=== PATIENT | male | born 1950 | race Caucasian/White ===

== ENCOUNTER 2022-09-08 21:26 | Inpatient (IN) | payer MEDICARE, BC ==
[~2022-09-08] VITALS: Ht 175.3 cm; Wt 93.0 kg
[2022-09-08] MEDS ORDERED: SODIUM CHLORIDE 0.9% 500ML 500 ML IV STA (21:52)
[2022-09-08] MEDS ORDERED: ACETAMINOPHEN 325 MG TAB PO STA (21:52)
[2022-09-08] MEDS ORDERED: CEFTRIAXONE 1 GM VIAL IV ONE (22:00)
[2022-09-08] MEDS ORDERED: CEFTRIAXONE 1 GM VIAL ONE (22:18)
[2022-09-08] MEDS ORDERED: SODIUM CHLORIDE 0.9% 500ML 500 ML ONE (22:18)
[2022-09-08] MEDS ORDERED: ACETAMINOPHEN 325 MG TAB ONE (22:18)
[2022-09-08] MEDS ORDERED: ONDANSETRON HCL 4 MG ORAL DISINTEGRATING TAB PO PRN (22:30)
[2022-09-08] MEDS ORDERED: DIPHENHYDRAMINE HCL INJ 50 MG/ML VIAL IV PRN (22:30)
[2022-09-08] MEDS ORDERED: ZOLPIDEM TARTRATE 5 MG TAB PO PRN (22:30)
[2022-09-08] MEDS ORDERED: ACETAMINOPHEN 325 MG TAB PO PRN (22:30)
[2022-09-08] MEDS ORDERED: SODIUM CHLORIDE FLUSH 10 ML SYR INJ PRN (22:30)
[2022-09-09] VITALS (13 sets, daily range): BP systolic 102–144; BP diastolic 60–86; PULSE 102–118; RESP 16–22; TEMP 97.5–99.7; O2SAT 93–100
[2022-09-09] MEDS: LACTATED RINGER'S 1,000 ML IV SCH ×2 (00:58→13:35)
[2022-09-09] MEDS: IPRATROPIUM BROMIDE 0.02% 2.5 ML NEB NEB SCH ×4 (01:04→19:06)
[2022-09-09] MEDS: CEFTRIAXONE 1 GM VIAL IV SCH ×2 (09:30→20:14)
[2022-09-09] MEDS: FAMOTIDINE 20 MG/2 ML VIAL IV SCH ×2 (09:30→16:24)
[2022-09-09 12:11] LABS: BASOPHILS % 0.2 % (0.0-1.0); EOSINOPHILS % 0.1 % (0.0-6.0); HEMATOCRIT 39.5 % (38.2-49.6); HEMOGLOBIN 13.3 g/dL (14.0-18.0); LYMPHOCYTES # (AUTO) 1.2 (1.0-3.2); LYMPHOCYTES % 6.4 % (18.0-39.1); MEAN CORPUSCULAR HEMOGLOBIN 28.7 pg (28-32); MEAN CORPUSCULAR HGB CONC 33.7 g/dL (31-35); MEAN CORPUSCULAR VOLUME 85.1 fL (81-99); MONOCYTES # (AUTO) 0.9 (0.2-0.8); MONOCYTES % 5.2 % (4.4-11.3); NEUTROPHILS # (AUTO) 15.8 (2.1-6.9); NEUTROPHILS % 87.2 % (38.7-80.0); PLATELET COUNT 170 x10e3/uL (140-360); RED BLOOD COUNT 4.64 x10e6/uL (4.3-5.7); RED CELL DISTRIBUTION WIDTH 14.1 % (11.7-14.4)
[2022-09-09 12:31] LABS: ALBUMIN 3.3 g/dL (3.5-5.0); ALBUMIN/GLOBULIN RATIO 0.9 (0.8-2.0); ANION GAP 12.6 mmol/L (8-16); CALCIUM 9.1 mg/dL (8.4-10.2); CREATININE, SERUM 1.21 mg/dL (0.72-1.25); POTASSIUM 3.6 mmol/L (3.5-5.1)
[2022-09-09] MEDS ORDERED: BENZONATATE 100 MG CAP PO PRN (14:15)
[2022-09-09] MEDS: ENOXAPARIN SOD INJ 40 MG/0.4 ML SYR SC SCH (16:27)
[2022-09-10] VITALS (12 sets, daily range): BP systolic 113–145; BP diastolic 71–95; PULSE 97–115; RESP 16–20; TEMP 98–98.8; O2SAT 93–100
[2022-09-10] MEDS: IPRATROPIUM BROMIDE 0.02% 2.5 ML NEB NEB SCH ×4 (00:45→19:13)
[2022-09-10] MEDS: LACTATED RINGER'S 1,000 ML IV SCH ×3 (01:29→21:56)
[2022-09-10] MEDS: CEFTRIAXONE 1 GM VIAL IV SCH ×2 (09:26→20:26)
[2022-09-10] MEDS: FAMOTIDINE 20 MG/2 ML VIAL IV SCH ×2 (09:27→16:52)
[2022-09-10 16:42] LABS: BASOPHILS % 0.3 % (0.0-1.0); EOSINOPHILS # (AUTO) 0.1 (0.0-0.4); EOSINOPHILS % 0.9 % (0.0-6.0); HEMATOCRIT 38.9 % (38.2-49.6); HEMOGLOBIN 12.8 g/dL (14.0-18.0); LYMPHOCYTES # (AUTO) 1.8 (1.0-3.2); LYMPHOCYTES % 13.8 % (18.0-39.1); MEAN CORPUSCULAR HGB CONC 32.9 g/dL (31-35); MEAN CORPUSCULAR VOLUME 85.1 fL (81-99); MONOCYTES # (AUTO) 0.9 (0.2-0.8); MONOCYTES % 6.6 % (4.4-11.3); NEUTROPHILS % 77.9 % (38.7-80.0); PLATELET COUNT 197 x10e3/uL (140-360); RED BLOOD COUNT 4.57 x10e6/uL (4.3-5.7)
[2022-09-10] MEDS: ENOXAPARIN SOD INJ 40 MG/0.4 ML SYR SC SCH (16:53)
[2022-09-11] VITALS: BP 134/72; PULSE 62; RESP 18; TEMP 99.4; O2SAT 98
[2022-09-11 01:06] VITALS: PULSE 101; RESP 16; O2SAT 97
[2022-09-11] MEDS: IPRATROPIUM BROMIDE 0.02% 2.5 ML NEB NEB SCH ×3 (01:06→07:26)
[2022-09-11 04:00] VITALS: BP 134/72; PULSE 100; RESP 16; TEMP 99.4; O2SAT 100
[2022-09-11 07:26] VITALS: PULSE 97; RESP 18; O2SAT 96
[2022-09-11] MEDS: CEFTRIAXONE 1 GM VIAL IV SCH (08:37)
[2022-09-11] MEDS: FAMOTIDINE 20 MG/2 ML VIAL IV SCH (08:37)
[2022-09-11 09:14] VITALS: BP_SYST 153; BP_SYST 86; BP_DIAS 86; PULSE 94; RESP 16; TEMP 99.3; O2SAT 98
[2022-09-11 09:24] VITALS: BP 153/86; PULSE 94; RESP 16; TEMP 99.3; O2SAT 98
[2022-09-11] MEDS ORDERED: ACETAMINOPHEN325 M1 PO (09:43)
[2022-09-11] MEDS ORDERED: CEFUROXIME250 MG PO (09:43)
[2022-09-11] MEDS ORDERED: ONDANSETRON ODT4 MG PO (09:43)
[2022-09-11] MEDS ORDERED: Benzonatate PO (09:43)
[2022-09-11] MEDS ORDERED: AZITHROMYCIN250 MG PO (09:43)
== END 2022-09-11 10:34 | disposition home or self-care (01) | DRG 195 ==
LOC: FSED 21:29 → ERHOLD 21:58 → MED/SURG3 09-09 00:16
PROVIDERS: ADMIT Internal Medicine; ATTEND Internal Medicine
DX: J18.9 Pneumonia, unspecified organism (principal); E66.9 Obesity, unspecified; Z68.30 Body mass index [BMI] 30.0-30.9, adult; R06.03 Acute respiratory distress; R09.02 Hypoxemia
CPT/HCPCS: 36415; 71046; 80053; 81003; 82553; 83605; 83880; 84484; 85025; 87040; 87071; 87186; 87205; 87400; 93005; 94640; 94799; 99284; J0696; J1650; J7040; J7050

== ENCOUNTER 2023-05-22 10:29 | Inpatient (IN) | payer MEDICARE, BC ==
[~2023-05-22] VITALS: Ht 177.8 cm; Wt 110.2 kg
[~2023-05-22 10:29] MED LIST: ACETAMINOPHEN325 M1 PO; AZITHROMYCIN250 MG PO; Benzonatate PO; CEFUROXIME250 MG PO; ONDANSETRON ODT4 MG PO
[2023-05-22] MEDS ORDERED: CEFTRIAXONE 1 GM VIAL IV ONE (11:15)
[2023-05-22] MEDS ORDERED: POTASSIUM CHLORIDE 20 MEQ TAB CR PO ONE (11:39)
[2023-05-22] MEDS ORDERED: ACETAMINOPHEN 325 MG TAB ONE (11:39)
[2023-05-22] MEDS ORDERED: LACTATED RINGER'S 1,000 ML ONE (11:40)
[2023-05-22] MEDS ORDERED: CEFTRIAXONE 1 GM VIAL ONE (11:40)
[2023-05-22] MEDS: ACETAMINOPHEN 325 MG TAB PO ONE (11:43)
[2023-05-22] MEDS: POTASSIUM CHLORIDE 20 MEQ TAB CR PO ONE (11:43)
[2023-05-22] MEDS: LACTATED RINGER'S 1,000 ML IV ONE (11:44)
[2023-05-22] MEDS ORDERED: SODIUM CHLORIDE FLUSH 10 ML SYR INJ PRN (13:00)
[2023-05-22] MEDS ORDERED: IOPAMIDOL 370 MG/ML 100 ML INFUS..BTL INJ ONE (13:21)
[2023-05-22 15:10] VITALS: BP 126/73; PULSE 104; RESP 20; TEMP 98.2; O2SAT 99
[2023-05-22] MEDS ORDERED: ONDANSETRON HCL INJ 2MG/ML 2ML 2 MG/ML VIAL IV PRN (15:15)
[2023-05-22] MEDS ORDERED: ENALAPRILAT IV INJ 1.25 MG/ML VIAL IV PRN (15:15)
[2023-05-22] MEDS ORDERED: CLONIDINE HCL 0.1 MG TAB PO PRN (15:15)
[2023-05-22 15:50] VITALS: PULSE 110; RESP 21; O2SAT 97
[2023-05-22] MEDS: FAMOTIDINE 20 MG/2 ML VIAL IV SCH (16:27)
[2023-05-22] MEDS: ENOXAPARIN SOD INJ 40 MG/0.4 ML SYR SC SCH (16:29)
[2023-05-22] MEDS ORDERED: SODIUM CHLORIDE 0.9% 250ML 250 ML ONE (16:29)
[2023-05-22 18:00] VITALS: BP 126/73; PULSE 104; RESP 20; TEMP 98.2
[2023-05-22 19:40] VITALS: PULSE 126; RESP 20; O2SAT 96
[2023-05-22 20:00] VITALS: BP 126/73; PULSE 126; RESP 20; TEMP 98.2; O2SAT 96
[2023-05-22] MEDS ORDERED: POLYETHYLENE GLYCOL 3350 17 GM PACK PO PRN (20:30)
[2023-05-22 20:39] VITALS: BP 148/79; PULSE 123; RESP 24; TEMP 99; O2SAT 97
[2023-05-22] MEDS ORDERED: ZOLPIDEM TARTRATE 5 MG TAB PO PRN (21:00)
[2023-05-22] MEDS: METOPROLOL TARTRATE INJ 1 MG/ML VIAL IV PRN (22:15)
[2023-05-22] MEDS: DIPHENHYDRAMINE HCL INJ 50 MG/ML VIAL IV PRN (22:16)
[2023-05-22] MEDS: SODIUM CHLORIDE 0.9% 1000ML 1,000 ML IV SCH (22:17)
[2023-05-22] MEDS: ACETAMINOPHEN 325 MG TAB PO PRN (22:30)
[2023-05-23] VITALS (12 sets, daily range): BP systolic 110–137; BP diastolic 67–82; PULSE 102–122; RESP 16–24; TEMP 98.3–103.1; O2SAT 95–98
[2023-05-23] MEDS: METRONIDAZOLE 500MG/NS 100ML 100 ML IV SCH (00:30)
[2023-05-23] MEDS ORDERED: GUAIFENESIN/DEXTROMETHORPHAN LIQD 5 ML UDC PO PRN (00:30)
[2023-05-23] MEDS: Vancomycin IV 1.25 GM in SODIUM CHLORIDE 0.9% 250ML 250 ML IV ONE (03:30)
[2023-05-23 04:21] LABS: CLARITY,URINE CLEAR (CLEAR); COLOR,URINE YELLOW (YELLOW); LEUKOCYTE ESTERASE ,URINE NEGATIVE (NEGATIVE); PH,URINE 6 (5 - 7)
[2023-05-23 04:22] LABS: BILIRUBIN,URINE NEGATIVE (NEGATIVE); GLUCOSE, URINE NEGATIVE (NEGATIVE); KETONES,URINE NEGATIVE (NEGATIVE); NITRITE,URINE NEGATIVE (NEGATIVE); PROTEIN,URINE DIPSTICK 2+ (NEGATIVE); URINE UROBILINOGEN 0.2 mg/dL (0.2 - 1)
[2023-05-23 04:30] LABS: BACTERIA,URINE MANY /HPF
[2023-05-23 07:26] LABS: BASOPHILS % 0.4 % (0.0-1.0); EOSINOPHILS % 0.1 % (0.0-6.0); HEMATOCRIT 36.3 % (38.2-49.6); HEMOGLOBIN 12.3 g/dL (14.0-18.0); LYMPHOCYTES # (AUTO) 0.7 (1.0-3.2); LYMPHOCYTES % 8.3 % (18.0-39.1); MEAN CORPUSCULAR HGB CONC 33.9 g/dL (31-35); MEAN CORPUSCULAR VOLUME 82.7 fL (81-99); MONOCYTES # (AUTO) 0.6 (0.2-0.8); MONOCYTES % 6.5 % (4.4-11.3); NEUTROPHILS # (AUTO) 7.1 (2.1-6.9); PLATELET COUNT 106 x10e3/uL (140-360); RED BLOOD COUNT 4.39 x10e6/uL (4.3-5.7); RED CELL DISTRIBUTION WIDTH 13.8 % (11.7-14.4); WHITE BLOOD COUNT 8.41 x10e3/uL (4.8-10.8)
[2023-05-23 07:43] LABS: ALBUMIN 2.5 g/dL (3.5-5.0); ALBUMIN/GLOBULIN RATIO 0.8 (0.8-2.0); ANION GAP 13.3 mmol/L (8-16); BILIRUBIN,TOTAL 0.9 mg/dL (0.2-1.2); CALCIUM 8.1 mg/dL (8.4-10.2); CHOL/HDL RATIO 10.9 (3.9-4.7); CREATININE, SERUM 1.23 mg/dL (0.72-1.25); MAGNESIUM 1.9 MG/DL (1.3-2.1); TOTAL PROTEIN 5.6 g/dL (6.5-8.1)
[2023-05-23 07:45] LABS: POTASSIUM 3.3 mmol/L (3.5-5.1)
[2023-05-23 08:06] LABS: FREE T4 (FREE THYROXINE) 0.99 ng/dL (0.8-1.8); THYROID STIMULATING HORMONE 1.139 uIU/mL (0.350-4.940)
[2023-05-23 08:58] LABS: HIV 1&2 AB SCREEN NON-REACTIVE (NONREACTIVE)
[2023-05-23] MEDS: DOCUSATE SODIUM 100 MG CAP PO SCH ×2 (10:47→20:12)
[2023-05-23] MEDS: CEFTRIAXONE 2 GM in SODIUM CHLORIDE 0.9% 100 ML IV SCH (10:47)
[2023-05-23] MEDS: FAMOTIDINE 20 MG/2 ML VIAL IV SCH (20:13)
[2023-05-24] VITALS (9 sets, daily range): BP systolic 125–152; BP diastolic 67–89; PULSE 100–115; RESP 17–20; TEMP 97–98.7; O2SAT 96–100
[2023-05-24] MEDS: IBUPROFEN 400 MG TAB PO PRN (01:25)
[2023-05-24 07:59] LABS: BASOPHILS % 0.5 % (0.0-1.0); EOSINOPHILS # (AUTO) 0.1 (0.0-0.4); EOSINOPHILS % 0.6 % (0.0-6.0); HEMATOCRIT 35.7 % (38.2-49.6); LYMPHOCYTES # (AUTO) 0.9 (1.0-3.2); LYMPHOCYTES % 10.5 % (18.0-39.1); MEAN CORPUSCULAR HGB CONC 33.6 g/dL (31-35); MEAN CORPUSCULAR VOLUME 83.4 fL (81-99); MONOCYTES # (AUTO) 0.6 (0.2-0.8); MONOCYTES % 6.8 % (4.4-11.3); NEUTROPHILS # (AUTO) 6.8 (2.1-6.9); NEUTROPHILS % 80.9 % (38.7-80.0); PLATELET COUNT 135 x10e3/uL (140-360); RED BLOOD COUNT 4.28 x10e6/uL (4.3-5.7); RED CELL DISTRIBUTION WIDTH 13.8 % (11.7-14.4); WHITE BLOOD COUNT 8.38 x10e3/uL (4.8-10.8)
[2023-05-24 08:16] LABS: CALCIUM 8.6 mg/dL (8.4-10.2); CREATININE, SERUM 1.1 mg/dL (0.72-1.25)
[2023-05-24] MEDS ORDERED: ONDANSETRON HCL 4 MG ORAL DISINTEGRATING TAB PO PRN (09:00)
[2023-05-24] MEDS ORDERED: POTASSIUM CHLORIDE 20 MEQ TAB CR PO STA (10:29)
[2023-05-24] MEDS: POTASSIUM CHLORIDE 20 MEQ TAB CR PO ONE (10:31)
[2023-05-24 10:43] LABS: LYMPHOCYTES % (MANUAL) 7 % (19-48); MONOCYTES % (MANUAL) 4 % (3.4-9.0); NEUTROPHILS % (MANUAL) 86 % (40-74); NUCLEATED RED BLOOD CELLS 1; REACTIVE LYMPHOCYTES 3
[2023-05-24 10:44] LABS: PLATELET ESTIMATE MODERATELY DECREASED; PLATELET MORPHOLOGY COMMENT NORMAL; RBC MORPHOLOGY COMMENT NORMAL
[2023-05-25] VITALS: BP 132/87; PULSE 116; RESP 18; TEMP 99.4; O2SAT 98
[2023-05-25 04:00] VITALS: BP 151/89; PULSE 82; RESP 18; TEMP 98.6; O2SAT 99
[2023-05-25 08:00] VITALS: BP 136/88; PULSE 111; RESP 21; TEMP 97.8
[2023-05-25 08:04] VITALS: BP 136/88; PULSE 111; RESP 21; TEMP 97.8; O2SAT 96
[2023-05-25 12:00] VITALS: BP 127/82; PULSE 107; RESP 22; TEMP 98.2; O2SAT 99
[2023-05-25 13:07] VITALS: BP 127/82; PULSE 107
[2023-05-25] MEDS: METOPROLOL SUCCINATE 25 MG TAB XL PO SCH (13:07)
[2023-05-25] MEDS ORDERED: TOPROL XL25 MG PO (15:32)
[2023-05-25] MEDS ORDERED: AZITHROMYCIN250 MG PO (15:32)
[2023-05-25] MEDS ORDERED: AZITHROMYCIN 250 MG TAB PO SCH (21:00)
== END 2023-05-25 16:27 | disposition home or self-care (01) | DRG 871 ==
LOC: FSED 10:34 → ERHOLD 13:05 → MED/SURG 15:10 → UNDODISIN 05-25 15:55
PROVIDERS: ADMIT Internal Medicine; ATTEND Internal Medicine
DX: A41.9 Sepsis, unspecified organism (principal); J18.9 Pneumonia, unspecified organism; E87.1 Hypo-osmolality and hyponatremia; I31.39 Other pericardial effusion (noninflammatory); J90 Pleural effusion, not elsewhere classified; N17.9 Acute kidney failure, unspecified; R65.20 Severe sepsis without septic shock; R09.02 Hypoxemia; E87.6 Hypokalemia; E86.0 Dehydration; R00.0 Tachycardia, unspecified; R31.29 Other microscopic hematuria; R79.89 Other specified abnormal findings of blood chemistry; R73.9 Hyperglycemia, unspecified; D69.6 Thrombocytopenia, unspecified; E88.09 Other disorders of plasma-protein metabolism, not elsewhere classified; R74.01 Elevation of levels of liver transaminase levels; E66.9 Obesity, unspecified; Z68.34 Body mass index [BMI] 34.0-34.9, adult; Z71.3 Dietary counseling and surveillance; Z86.16 Personal history of COVID-19; Z79.899 Other long term (current) drug therapy; Z80.0 Family history of malignant neoplasm of digestive organs; Z80.1 Family history of malignant neoplasm of trachea, bronchus and lung; Z80.9 Family history of malignant neoplasm, unspecified
CPT/HCPCS: 0223U; 36415; 70450; 71260; 80048; 80053; 80061; 81001; 82378; 82553; 82948; 83036; 83518; 83605; 83735; 84100; 84439; 84443; 84484; 85025; 85379; 86301; 87040; 87086; 87390; 87400; 93005; 93306; 94799; 96374; 96375; 96376; 99284; G0433; G0435; J0696; J1200; J1650; J7030; J7050; Q9967